=== PATIENT | male | born 1945 | race Hispanic/Latino ===

== ENCOUNTER 2021-01-31 10:50 | Day surgery (SDC) | payer MEDICARE ==
[2021-01-27 11:51] LABS: BASOPHILS % (AUTO) 0.5 % (0.0-5.0); EOSINOPHILS % (AUTO) 1.4 % (0.0-8.0); HEMATOCRIT 48.6 % (36-48); LYMPHOCYTES % (AUTO) 45.7 % (21.0-51.0); MEAN CORPUSCULAR HEMOGLOBIN 30.7 pg (27.0-33.0); MEAN CORPUSCULAR HGB CONC 31.7 g/dL (32.0-36.0); MONOCYTES % (AUTO) 7.6 % (3.0-13.0); NEUTROPHILS % (AUTO) 44.5 % (40.0-77.0); PLATELET COUNT (AUTO) 248 K/uL (130-400); RED BLOOD CELL COUNT(AUTO) 5.01 MIL/uL (4.00-5.50); RED CELL DISTRIBUTION WIDTH 13.5 % (11.0-15.5); WHITE BLOOD COUNT (AUTO) 10.3 K/uL (4.8-10.8)
[2021-01-27 12:05] LABS: CREATININE 0.7 mg/dL (0.5-1.5); INR 1.1 (0.85-1.15); POTASSIUM 4.5 mmol/L (3.5-5.1); PROTHROMBIN TIME 11.9 SEC (9.6-11.6)
[2021-01-27 12:06] LABS: PARTIAL THROMBOPLASTIN TIME 32.7 SEC (26.3-35.5)
[2021-01-31] VITALS (15 sets, daily range): BP systolic 144–154; BP diastolic 69–92
[~2021-01-31 10:50] MED LIST: ASCO500C18 PO; CEFAZOLIN SODIUM 1 GM VIAL IVP SCH; INSU100C14 SQ; PRAV40TA3 PO; RIVA20TA PO; ZINC220C6 PO
[2021-01-31] MEDS ORDERED: 0.9%NACL 1000ML 1,000 ML IV ONE (11:33)
[2021-01-31] MEDS ORDERED: BACITRACIN 28.4 GM OINT TP ONE (12:39)
[2021-01-31] MEDS ORDERED: BUPIVACAINE/EPI/PF 0.5% 30ML VIAL IJ ONE (12:39)
[2021-01-31] MEDS ORDERED: LIDOCAINE PF 100MG/5ML (2%) SYRINGE 5ML ONE (12:56)
[2021-01-31] MEDS ORDERED: SUCCINYLCHOLINE CHLORIDE 20 MG/ML 10 ML VIAL ONE (12:56)
[2021-01-31] MEDS ORDERED: ROCURONIUM 10MG/1ML SYR 10 MG/ML ML ONE (12:56)
[2021-01-31] MEDS ORDERED: ONDANSETRON 4MG INJ ONE (12:56)
[2021-01-31] MEDS ORDERED: PROPOFOL 10 MG/ML 20ML VIAL IV ONE (12:56)
[2021-01-31] MEDS ORDERED: FENTANYL CITRATE PF 50 MCG/1 ML 2ML VIAL ONE (12:58)
[2021-01-31] MEDS ORDERED: ESMOLOL HCL 10 MG/ML 10 ML VIAL ONE (13:43)
[2021-01-31] MEDS ORDERED: DEXAMETHASONE SOD PHOSPHATE 4 MG/ML 1ML VIAL ONE (14:27)
[2021-01-31] MEDS ORDERED: PHENYLEPHRINE HCL 10 MG/ML 1ML VIAL IV ONE (14:28)
[2021-01-31] MEDS ORDERED: NEOSTIGMINE 5MG/5ML SYR IV ONE (14:57)
[2021-01-31] MEDS ORDERED: GLYCOPYRROLATE 1 MG/5 ML SYRINGE ONE (14:57)
[2021-01-31] MEDS ORDERED: MEPERIDINE-PF 25 MG/ML SYG ONE (15:39)
== END 2021-01-31 17:30 | disposition home or self-care (01) ==
LOC: DAH 10:50 → EDSEX 10:50 → DAH 17:30
PROVIDERS: ATTEND Otolaryngology
DX: J86.0 Pyothorax with fistula (principal); J95.09 Other tracheostomy complication; Z20.822 Contact with and (suspected) exposure to COVID-19; I48.91 Unspecified atrial fibrillation; K21.9 Gastro-esophageal reflux disease without esophagitis; E11.9 Type 2 diabetes mellitus without complications; I10 Essential (primary) hypertension; Z79.899 Other long term (current) drug therapy; Z79.01 Long term (current) use of anticoagulants; Z79.4 Long term (current) use of insulin; Z86.73 Personal history of transient ischemic attack (TIA), and cerebral infarction without residual deficits
CPT/HCPCS: 31825; 36415; 71045; 80048; 82948 ×2; 85025; 85610; 85730; 87635; 93005; A4215; A4216; A4221; A4222; A4223 ×2; A4663; A6260; C9803; J0330; J0690; J1100; J2001; J2175; J2370; J2405; J2704; J2710; J3010; J3490 ×3; J7030 ×2